=== PATIENT | female | born 1955 | race Caucasian/White ===

== ENCOUNTER 2018-12-18 10:46 | Emergency (ER) | payer OTHER ==
--- OUTSIDE RECORDS SUMMARY | 2018-12-18 12:50 | XMS REPORT | Continuity of Care Document ---
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 Onset: 05/17 Other specified disorders of synovium, Quintin Tavares M.D. Onset: 05/26/2017 right hip Trochanteric bursitis Quintin Tavares M.D. Onset: 06/16/2017 Sciatica Quintin Tavares M.D. Onset: 09/01/2017 Multinodular goiter Yenny Sepulveda, N.PVishnu Onset: 09/02/2017 Social History Type Date Description Comments Sex Unknown ETOH Use Denies alcohol use Tobacco Use Start: Unknown Patient has never smoked Recreational Drug Use Denies Drug Use Smoking Status Reviewed: 11/23/18 Patient has never smoked Exercise Type/Frequency Exercises regularly Allergies, Adverse Reactions, Alerts Active Allergies Reaction Severity Comments Date Invokana yeast infections 09/21/2017 Inactive Allergies NKDA 05/17/2013 Medications Active Medications SIG Qnty Indications Ordering Date Provider Metaxalone take 1/2 to 1 30tabs M62.838 Yenny Sepulveda, 09/28/2018 800mg Tablets tablet hs prn N.P. muscle spasms Atorvastatin Calcium take 1 tablet at 90tabs E78.4 Jeff Joyner MD 2018 20mg bedtime Tablets Losartan 1 tablet daily 90tabs I10 Jeff Joyner MD 08/10/2018 Potassium/Hydrochlorot in the morning hiazide 50-12.5mg Tablets Flovent HFA 2 puffs twice 1units R06.02 Yenny Sepulveda, 05/20/2018 110mcg/Act daily N.P. Aerosol Metformin HCL ER take 2 tablets 180tabs E11.65 Jeff Joyner MD 05/11/2018 750mg at bedtime Tablets ER 24HR Prandin take 1 tablet 90tabs Jeff Joyner MD 01/26/2018 1mg Tablets with meals (up to 2 per day with meals with carbs)pt only uses with carbs. Pioglitazone HCL Take 1 Tablet By 90tabs E11.65 Jeff Joyner MD 11/03/2017 15mg Mouth Once A Day Tablets Cyclobenzaprine HCL take 1 tablet by 30tabs G44.209 Yenny Sepulveda, 2017 5mg mouth at bedtime N.P. Tablets as needed for back pain Onetouch Basic/Profile check up to 5 450units Jeff Joyner MD 05/29/2016 Test Strips times daily Strips Trulicity 1.5 mg 12units Jeff Joyner MD 05/07/2016 1.5mg/0.5ML injection, once Solution Pen-Inject weekly Ranitidine 150 Maximum one by mouth 60tabs K21.9 Yenny Sepulveda, 02/18/2016 Strength twice a day N.P. 150mg Tablets Albuterol Sulfate use one vial via 150units Yenny Sepulveda, 07/26/2013 nebulizer every N.P. (2.5mg/3ML) 0.083% 4 hours for Nebulizer shortness of breath / wheezing/cough Kim Contour Blood use to check 300units Mikayla 05/17/2013 Glucose Test Strips blood glucose Kee, four times a day N.P. Strips and as needed Ventolin HFA 2 puffs by mouth 3units 493.90 Yenny Sepulveda, 108(90Base) four times a day N.P. mcg/Act Aerosol as needed 466.0 Diclofenac-Misoprostol take (1) tablet 180tabs Yenny Sepulveda, 75-0.2mg Tablets DR by mouth twice a N.P. day. Cymbalta 1 by mouth every Yenny Taylorn, 60mg Caps DR Part day N.P. Gabapentin 300 mg at 90caps Yenny Varn, 100mg Capsules bedtime N.P. History Medications Metaxalone one by mouth at 30tabs M62.838 Yenny Varn, 09/28/2018 - 400mg bedtime as N.P. 09/28/2018 Tablets needed muscle spasms Medications Administered in Office Medication SIG Qnty Indications Ordering Provider Date Depomedrol 40MG Quintin Tavares M.D. 06/16/2017 Injection Depomedrol 80MG Quintin Tavares M.D. 11/06/2010 Injection Immunizations CPT Code Status Date Vaccine Lot # [id number] Given 01/02/2014 Pneumonia Vaccine [id number] Vital Signs Date Vital Result Comment 11/23/2018 7:57am Height 69 inches 5'9" Weight 177.00 lb w/ shoes Heart Rate 68 /min BP Systolic Sitting 147 mmHg BP Diastolic Sitting 89 mmHg BMI (Body Mass Index) 26.1 kg/m2 09/28/2018 2:19pm Height 69 inches 5'9" Weight 179.38 lb Heart Rate 80 /min BP Systolic 135 mmHg BP Diastolic 86 mmHg Body Temperature 98.6 F O2 % BldC Oximetry 97 % BMI (Body Mass Index) 26.5 kg/m2 Waist Circumference 38 Results Test Date Facility Test Result H/L Range Note Lipid Profile 11/21/2018 [facility] Triglycerides 170 mg/dL 1 (Trig/Chol/HDL) [address] [place] [address] [phone] Cholesterol 144 mg/dL 2 HDL Cholesterol 40.2 mg/dL 3 LDL Cholesterol 70 mg/dL 4 Comp Metabolic 11/21/2018 [facility] Sodium 140 mmol/L Normal 135-145 Panel [address] [place] [address] [phone] Potassium 4.4 mmol/L Normal 3.5-5.0 Chloride 104 mmol/L Normal 101-111 Co2 Carbon Dioxide 28 mmol/L Normal 22-32 Anion Gap 8 mmol/L Normal 2-11 Glucose 167 mg/dL High 70-100 Blood Urea Nitrogen 24 mg/dL Normal 6-24 Creatinine 0.96 mg/dL High 0.51-0.95 BUN/Creatinine Ratio 25.0 High 8-20 Calcium 9.3 mg/dL Normal 8.6-10.3 Total Protein 6.3 g/dL Low 6.4-8.9 Albumin 4.1 g/dL Normal 3.2-5.2 Globulin 2.2 g/dL Normal 2-4 Albumin/Globulin Ratio 1.9 Normal 1-3 Total Bilirubin 1.20 mg/dL High 0.2-1.0 Alkaline Phosphatase 58 U/L Normal 34-104 Alt 21 U/L Normal 7-52 Ast 16 U/L Normal 13-39 Egfr Non- 58.7 >60 Egfr 71.0 >60 5 Laboratory test 11/21/2018 [facility] Hemoglobin A1c 7.1 % High 4.0-5.[address] (Glyco HGB) [place] [address] [phone] Laboratory test 08/08/2018 [facility] Hemoglobin A1c 6.4 % High 4.0-5.[address] (Glyco HGB) [place] [address] [phone] Lipid Profile 08/08/2018 [facility] Triglycerides 143 8 (Trig/Chol/HDL) [address] mg/[place] [address] [phone] Cholesterol 167 mg/dL 9 HDL Cholesterol 44.2 mg/dL 10 LDL Cholesterol 94 mg/dL 11 Comp Metabolic 08/08/2018 [facility] Sodium 140 mmol/L Normal 135-[address] [place] [address] [phone] Potassium 4.4 mmol/L Normal 3.5-5.0 Chloride 102 mmol/L Normal 101-111 Co2 Carbon Dioxide 29 mmol/L Normal 22-32 Anion Gap 9 mmol/L Normal 2-11 Glucose 128 mg/dL High 70-100 Blood Urea Nitrogen 25 mg/dL High 6-24 Creatinine 0.76 mg/dL Normal 0.51-0.95 BUN/Creatinine Ratio 32.9 High 8-20 Calcium 9.8 mg/dL Normal 8.6-10.3 Total Protein 6.6 g/dL Normal 6.4-8.9 Albumin 4.3 g/dL Normal 3.2-5.2 Globulin 2.3 g/dL Normal 2-4 Albumin/Globulin Ratio 1.9 Normal 1-3 Total Bilirubin 1.20 mg/dL High 0.2-1.0 Alkaline Phosphatase 60 U/L Normal 34-104 Alt 23 U/L Normal 7-52 Ast 19 U/L Normal 13-39 Egfr Non- 76.9 >60 Egfr 93.0 >60 12 Laboratory 08/08/2018 [facility] TSH (Thyroid 1.63 Normal 0.34 -5.60 test finding [address] Stim Horm) mcIU/[place] [address] [phone] Desirable: <150 Borderline High: 150-199 High: 200-499 Very High: >500 2 Desirable: <200 Borderline High: 200-239 High: >239 3 Low: <40 Desirable: 40-60 High: >60 4 Desirable: <100 Near Optimal: 100-129 Borderline High: 130-159 High: 160-189 Very High: >189 5 Because ethnic data is not always readily available, this report includes an eGFR for both -Americans and non- Americans. The National Kidney Disease Education Program (NKDEP) does not endorse the use of the MDRD equation for patients that are not between the ages of 18 and 70, are , have extremes of body size, muscle mass, or nutritional status, or are non- or non-. According to the National Kidney Foundation, irrespective of diagnosis, the stage of the disease is based on the level of kidney function: Stage Description GFR(mL/min/1.73 m(2)) 1 Kidney damage with normal or decreased GFR 90 2 Kidney damage with mild decrease in GFR 60-89 3 Moderate decrease in GFR 30-59 4 Severe decrease in GFR 15-29 5 Kidney failure <15 (or dialysis) 6 Therapeutic target for the treatment of diabetes mellitus patients is <7% HBA1C, and in selective patients <6.0%. Please refer to [place] [employer] diabetic care guidelines for further information. 7 Therapeutic target for the treatment of diabetes mellitus patients is <7% HBA1C, and in selective patients <6.0%. Please refer to [place] [employer] diabetic care guidelines for further information. 8 Desirable: <150 Borderline High: 150-199 High: 200-499 Very High: >500 9 Desirable: <200 Borderline High: 200-239 High: >239 10 Low: <40 Desirable: 40-60 High: >60 11 Desirable: <100 Near Optimal: 100-129 Borderline High: 130-159 High: 160-189 Very High: >189 12 Because ethnic data is not always readily available, this report includes an eGFR for both -Americans and non- Americans. The National Kidney Disease Education Program (NKDEP) does not endorse the use of the MDRD equation for patients that are not between the ages of 18 and 70, are , have extremes of body size, muscle mass, or nutritional status, or are non- or non-. According to the National Kidney Foundation, irrespective of diagnosis, the stage of the disease is based on the level of kidney function: Stage Description GFR(mL/min/1.73 m(2)) 1 Kidney damage with normal or decreased GFR 90 2 Kidney damage with mild decrease in GFR 60-89 3 Moderate decrease in GFR 30-59 4 Severe decrease in GFR 15-29 5 Kidney failure <15 (or dialysis) Procedures Date Code Description Status 11/17/2018 06042236 Mammogram Completed 09/28/2018 56132 Admin & Interp Of Health Risk Assessment w/ Patient Completed 03/22/2018 [id number] Bone Mineral Density Test Completed 09/29/2017 [id number] Mammogram Completed 07/22/2016 [id number] Diabetic Retinal Eye Exam Completed 11/19/2015 [id number] Mammogram Completed 05/15/2014 [id number] Diabetic Retinal Eye Exam Completed 01/17/2014 [id number] Mammogram Completed 02/08/2010 [id number] Colonoscopy Completed Medical Devices Description No Information Available Encounters Type Date Location Provider Dx Diagnosis Office Visit 11/23/2018 [facility] Jeff Joyner MD E11.65 Type 2 diabetes 8:00a [facility] mellitus with hyperglycemia I10 Essential (primary) hypertension E78.5 Hyperlipidemia, unspecified Office Visit 09/28/2018 2:20p [facility] Internal Yenny Sepulveda Z00.00 Encntr for Medicine - Ccmob N.P. 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 examination without abnormal findings 09/28/2018 Z12.31 Encounter for screening mammogram for Yenny Sepulveda N.P. malignant neoplasm of breast 09/28/2018 E11.65 Type 2 diabetes mellitus with hyperglycemia Yenny Sepuvleda , N.P. 09/28/2018 I10 Essential (primary) hypertension Yenny Brandonn, N.P. 09/28/2018 E78.5 Hyperlipidemia, unspecified Yenny Varn, N.P. 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 09/28/2018 J45.30 Mild persistent asthma, uncomplicated Yenny Varn, N.P. 09/28/2018 M62.838 Other muscle spasm Yenny Sepulveda, N.P. 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 Continue medications as prescribed. 2. Increase protein content in the foods you eat. 3. Return in 3 months for a follow-up visit.I10 Essential (primary) [id number] Hyperlipidemia, unspecified Functional Status Description No Information Available Mental Status Description No Information Available Referrals Description No Information Available
[2018-12-18 12:56] VITALS: BP 156/95
--- NOTE | 2018-12-18 13:18 | UC ---
Back Pain HPI - HPI Summary HPI Summary: has had long time chronic low back pain, treated with gabapentin and Cymbalta. over past week, R lower back pain has intensified and radiates to R hip and upper leg. she has been using her felxeril and NSAID, tramadol warm packs and cold packs w/o much relief has used prednisone for same symps in past which helped - History of Current Complaint Chief Complaint: UCBackPain Stated Complaint: BACK PAIN Time Seen by Provider: 12/18/18 13:05 Hx Obtained From: Patient Hx Last Menstrual Period: Years ago. Onset/Duration: Gradual Onset Timing: Constant Severity Initially: Moderate Pain Intensity: 7 Back Pain: Is Discrete @ - R lower back Character: Throbbing, Spasmodic, Stiffness Aggravating Factor(s): Movement, Bending Alleviating Factor(s): Rest, Position, Cold Associated Signs And Symptoms: Negative: Weakness, Numbness, Tingling, Bladder Incontinence, Bowel Incontinence Related History: Similar Episode Dx As - disc disease - Risk Factors Cauda Equina Risk Factors: Negative - Allergies/Home Medications Allergies/Adverse Reactions: Allergies Allergy/AdvReac Type Severity Reaction Status Date / Time No Known Allergies Allergy Verified 12/18/18 12:51 Home Medications: Home Medications Amoxicillin/Clavulanate TAB* [Augmentin TAB 875*] 875 mg PO BID 12/18/18 [ History Confirmed 12/18/18] Atorvastatin* [Lipitor 20 MG*] 20 mg PO DAILY 12/18/18 [History Confirmed ] Cyclobenzaprine TAB* [Flexeril 10 MG TAB*] 5 mg PO BEDTIME PRN 12/18/18 [ History Confirmed 12/18/18] DULoxetine CAP* [Cymbalta CAP*] 60 mg PO DAILY 12/18/18 [History Confirmed ] Diclofenac Sodium/Misoprostol [Arthrotec 75 mg-200 Mcg Tab] 1 tab PO BID [History Confirmed 12/18/18] Dulaglutide [Trulicity] 1.5 mg SQ WEEKLY 12/18/18 [History Confirmed 12/18/18] Fluticasone HFA 110 mcg(NF) [Flovent HFA 110 mcg(NF)] 2 puff INH DAILY 12/18/18 [History Confirmed 12/18/18] Gabapentin CAP(*) [Neurontin 300 CAP(*)] 300 mg PO BEDTIME 12/18/18 [History Confirmed 12/18/18] Losartan/Hydrochlorothiazide [Losartan-Hctz 50-12.5 mg Tab] 1 tab PO DAILY 12/18 [History Confirmed 12/18/18] Metaxalone TAB* [Skelaxin TAB*] 800 mg PO BEDTIME PRN 12/18/18 [History Confirmed 12/18/18] Pioglitazone TAB* [Actos TAB*] 15 mg PO DAILY 12/18/18 [History Confirmed ] Repaglinide TAB* [Prandin TAB*] 1 mg PO AC 12/18/18 [History Confirmed 12/18/18] metFORMIN* [Glucophage 500 MG TAB *] 750 mg PO BID 12/18/18 [History Confirmed 12/18/18] raNITIdine HCl [Ranitidine HCl] 150 mg PO BID PRN 12/18/18 [History Confirmed ] PMH/Surg Hx/FS Hx/Imm Hx Previously Healthy: Yes Endocrine History: Diabetes, Dyslipidemia Cardiovascular History: Hypertension GI/ History: Gastroesophageal Reflux Neurological History: Other - chronic back pain - Surgical History Surgical History: Yes Surgery Procedure, Year, and Place: TOTAL ABDOMINAL HYSTERECTOMY, LEFT OOPHRECTOMY. BILATERAL ROTATOR CUFF REPAIR. GALL BLADDER REMOVED 2005. LAP BIRTCH BLADDER SUSPENSION - Family History Known Family History: Positive: None - Social History Occupation: Employed Full-time Lives: With Family Alcohol Use: Occasionally Alcohol Amount: wine once a month Substance Use Type: None Smoking Status (MU): Never Smoked Tobacco - Immunization History Most Recent Influenza Vaccination: season Review of Systems All Other Systems Reviewed And Are Negative: Yes Skin: Negative: Rash Respiratory: Positive: Negative Cardiovascular: Positive: Negative Gastrointestinal: Positive: Negative Genitourinary: Positive: Negative Musculoskeletal: Positive: Other: - back pain Psychological: Positive: Negative Is Patient Immunocompromised?: No Physical Exam Triage Information Reviewed: Yes Appearance: Well-Appearing, No Pain Distress, Well-Nourished Vital Signs: Initial Vital Signs Temp 98.4 F 12/18/18 12:50 Pulse 85 12/18/18 12:50 Resp 16 12/18/18 12:50 BP 156/95 12/18/18 12:50 Pulse Ox 100 12/18/18 12:50 Vital Signs Reviewed: Yes Respiratory Exam: Normal Cardiovascular Exam: Normal Musculoskeletal: Positive: Strength Intact, ROM Intact - with pain on LS flexion , no weakness detected Neurological Exam: Normal Neurological: Positive: Alert Psychological Exam: Normal Skin Exam: Normal Skin: Negative: Rashes Back Pain Course/Dx - Differential Dx/Diagnosis Differential Diagnosis/HQI/PQRI: Cauda Equina Syndrome, Herniated Disc, Strain, Sprain Provider Diagnosis: Low back strain Discharge ED - Sign-Out/Discharge Documenting (check all that apply): Patient Departure All imaging exams completed and their final reports reviewed: No Studies - Discharge Plan Condition: Good Disposition: HOME Prescriptions: predniSONE TAB* [Deltasone 20 MG TAB*] 40 mg PO DAILY #3 tab Referrals: Yenny Sepulveda TOOL CLERK [Primary Care Provider] - 3 Days (if not improving) Additional Instructions: take prednisone as directed use your muscle relaxers, tramadol as directed - Billing Disposition and Condition Condition: GOOD Disposition: Home
== END 2018-12-18 13:27 | disposition home or self-care (01) ==
LOC: UCEAST 10:46
DX: S39.012A Strain of muscle, fascia and tendon of lower back, initial encounter (principal); I10 Essential (primary) hypertension; E11.9 Type 2 diabetes mellitus without complications; K21.9 Gastro-esophageal reflux disease without esophagitis; E78.5 Hyperlipidemia, unspecified; G89.29 Other chronic pain; Z79.84 Long term (current) use of oral hypoglycemic drugs; Z79.899 Other long term (current) drug therapy; X58.XXXA Exposure to other specified factors, initial encounter; Y92.9 Unspecified place or not applicable
CPT/HCPCS: 99212; G0463